=== PATIENT | female | born 1975 | race Caucasian/White ===

== ENCOUNTER 2017-07-10 14:48 | Outpatient (CLI) | payer MEDICARE, OTHER ==
[2017-07-10 15:07] LABS: ALT (SGPT) 18 U/L (8-55); AST (SGOT) 15 U/L (5-34); Albumin 3.9 g/dL (3.5-5.0); Alkaline Phosphatase 75 U/L (40-150); Anion Gap 17 mmol/L (10-20); BUN (Urea Nitrogen) 10 mg/dL (7.0-18.7); Bilirubin, Total 0.6 mg/dL (0.2-1.2); Calc. Creatinine Clearance 0 mL/min (70-130); Calcium 8.9 mg/dL (7.8-10.44); Carbon Dioxide 23 mmol/L (22-29); Chloride 106 mmol/L (98-107); Cholesterol 169 mg/dl (< 200 Desired); Estimated GFR-MDRD 77; Glucose 74 mg/dL (70-105); HDL Cholesterol 34 mg/dL (>60 Neg Risk); LDL Cholesterol, Calculated 110 mg/dL; Potassium 4.5 mmol/L (3.5-5.1); Protein, Total 6.9 g/dL (6.0-8.3); Sodium 141 mmol/L (136-145); Triglycerides 127 mg/dL (Less than 150)
[2017-07-10 15:10] LABS: #Basophils 0.1 thou/uL (0.0-0.2); #Eosinphils 0.5 thou/uL (0.0-0.7); #Lymphocytes 2.5 thou/uL (1.20-3.40); #Monocytes 0.5 thou/uL (0.11-0.59); #Neutrophils 5.8 thou/uL (1.40-6.50); %Eosinophils 5.6 % (0.0-10.0); %Lymphocytes 26.6 % (21.0-51.0); %Monocytes 5.5 % (0.0-10.0); %Neutrophils 61.3 % (42.0-75.0); Hemoglobin 14.6 g/dL (12.0-16.0); Mean Corpuscular HGB CONC 32.6 g/dL (32.0-36.0); Mean Corpuscular Hemoglobin 29.3 pg (27.0-31.0); Mean Corpuscular Volume 89.9 fl (81.0-99.0); Mean Platelet Volume 6.4 fL (7.4-10.4); Platelet Count 307 thou/uL (130-400); RBC Distribution Width 12.8 % (11.5-14.5); Red Blood Cell (RBC) Count 4.97 mill/uL (4.20-5.40); White Blood Cell (WBC) Count 9.4 thou/uL (4.8-10.8)
[2017-07-10 15:12] LABS: INR-International Normal Ratio 0.9; Prothrombin Time 12.6 SEC (12.0-14.7)
[2017-07-10 15:13] LABS: PTT 29.9 SEC (22.9-36.1)
== END 2017-07-10 14:49 | disposition home or self-care (01) ==
LOC: MADLAB 14:48
PROVIDERS: ATTEND Family Medicine
DX: F32.9 Major depressive disorder, single episode, unspecified (principal); E78.5 Hyperlipidemia, unspecified; Z86.711 Personal history of pulmonary embolism
CPT/HCPCS: 80053; 80061; 84443; 85025; 85610; 85730

== ENCOUNTER 2017-09-30 13:10 | Outpatient (CLI) | payer MEDICARE, OTHER ==
--- NOTE | 2017-09-30 14:50 | ULT ---
RENAL ULTRASOUND: HISTORY: Abnormal finding on CT. COMPARISON: None. CORRELATION: CT angiogram of the chest 09/21/17. TECHNIQUE: Sagittal and transverse imaging of the kidneys is performed. FINDINGS: There appears to be cortical atrophy and scarring involving the mid pole of the right kidney. Grossl y, no hydronephrosis. The right kidney measures 3.7 x 3.3 x 6.5 cm and is diminutive. The left kidney has a normal cortical echotexture. No hydronephrosis. The left kidney measures 3.6 x 5.0 x 9.6 cm. The urinary bladder is unremarkable with a volume of 37 cm. IMPRESSION: Atrophy and scarring involving the right kidney. No hydronephrosis. POS: [facility]
== END 2017-09-30 13:11 | disposition home or self-care (01) ==
LOC: MADULT 13:10
PROVIDERS: ATTEND Family Medicine
DX: R93.421 Abnormal radiologic findings on diagnostic imaging of right kidney (principal)
CPT/HCPCS: 76770

== ENCOUNTER 2017-10-07 22:05 | Emergency (ER) | payer MEDICARE, OTHER ==
[2017-10-07] MEDS ORDERED: Bacitracin Zinc 1 Packet ONE (22:29)
[2017-10-07] MEDS ORDERED: HYDROcodone/Acetaminophen 5/325 mg Tablet ONE (22:29)
== END 2017-10-07 23:22 | disposition home or self-care (01) ==
LOC: MADERS 22:05
DX: T23.261A Burn of second degree of back of right hand, initial encounter (principal); T24.212A Burn of second degree of left thigh, initial encounter; G40.909 Epilepsy, unspecified, not intractable, without status epilepticus; Z86.73 Personal history of transient ischemic attack (TIA), and cerebral infarction without residual deficits; F32.9 Major depressive disorder, single episode, unspecified; Z79.899 Other long term (current) drug therapy; Z79.01 Long term (current) use of anticoagulants; X08.8XXA Exposure to other specified smoke, fire and flames, initial encounter
CPT/HCPCS: 16020

== ENCOUNTER 2018-03-01 16:20 | Emergency (ER) | payer MEDICARE, OTHER ==
--- NOTE | 2018-03-01 17:39 | RAD ---
RIGHT KNEE FOUR VIEWS: 03/01/18 HISTORY: Fell out of a wheelchair. There is no signs of fracture, dislocation or joint effusion. IMPRESSION: Negative right knee. POS: [facility]
== END 2018-03-01 17:35 | disposition home or self-care (01) ==
LOC: MADERS 16:20
DX: S16.1XXA Strain of muscle, fascia and tendon at neck level, initial encounter (principal); S80.01XA Contusion of right knee, initial encounter; F32.9 Major depressive disorder, single episode, unspecified; Z86.711 Personal history of pulmonary embolism; Z86.73 Personal history of transient ischemic attack (TIA), and cerebral infarction without residual deficits; Z86.718 Personal history of other venous thrombosis and embolism; W17.89XA Other fall from one level to another, initial encounter